=== PATIENT | female | born 1995 | race Caucasian/White ===

== ENCOUNTER → 2021-05-09 | Outpatient (CLI) | payer OTHER ==
[~2021-05-09] MED LIST: IBUPROFEN600 MG PO; IBUPROFEN800 MG PO; LODINE CAP 300300 MG PO; OMNICEF 300 MG300 MG PO; ROBAXIN500 MG PO; ZYRTEC10 MG PO
== END ==
LOC: LAB 17:03
DX: Z20.822 Contact with and (suspected) exposure to COVID-19 (principal)
CPT/HCPCS: U0002